=== PATIENT | female | born 1970 | race Caucasian/White ===

== ENCOUNTER 2016-12-02 18:21 | Observation (INO) | payer BC ==
[~2016-12-02] VITALS: Ht 172.7 cm; Wt 85.4 kg
[~2016-12-02 18:21] MED LIST: ASPI1TAB30 PO; DEXT10CA10 PO; HYDR-971 PO; PROP10TA PO; SERT100T PO; SUMA100T3 PO
[2016-12-02 18:43] LABS: BASO # 0.1 x10^3/uL (0.0-0.2); BASO % 1 % (0-3); EOS % 2 % (0-3); HEMATOCRIT 42.1 % (36.0-47.0); HEMOGLOBIN 14.6 g/dL (12.0-15.5); LYMPH # 2.8 x10^3/uL (1.0-4.8); LYMPH % 35 % (24-48); MEAN CORPUSCULAR HEMOGLOBIN 31 pg (25-35); MEAN CORPUSCULAR HGB CONC 35 g/dL (31-37); MEAN CORPUSCULAR VOLUME 90 fL (79-100); MONO % 7 % (0-9); NEUT % 56 % (31-73); PLATELET COUNT 434 x10^3/uL (140-400); RED BLOOD COUNT 4.67 x10^6/uL (3.50-5.40); RED CELL DISTRIBUTION WIDTH 12.1 % (11.5-14.5); WHITE BLOOD COUNT 8.1 x10^3/uL (4.0-11.0)
[2016-12-02] MEDS ORDERED: ASPIRIN CHEWABLE 81 MG TABLET. PO ONE (18:45)
[2016-12-02 19:00] LABS: CALCIUM 9.2 mg/dL (8.5-10.1); CREATININE 0.9 mg/dL (0.6-1.0); GFR 67.1; POTASSIUM 3.3 mmol/L (3.5-5.1)
[2016-12-02 19:07] LABS: ALBUMIN 4.2 g/dL (3.4-5.0); DIRECT BILIRUBIN 0.1 mg/dL (0.0-0.2); TOTAL BILIRUBIN 0.5 mg/dL (0.2-1.0); TOTAL PROTEIN 8.2 g/dL (6.4-8.2)
[2016-12-02] MEDS ORDERED: NITROGLYCERIN SUBLINGUAL 0.4 MG BOTTLE OF 25. SL PRN (19:45)
[2016-12-02] MEDS ORDERED: ONDANSETRON PF 4 MG/2 ML VIAL. IV PRN (19:45)
[2016-12-02] MEDS ORDERED: MORPHINE SULFATE 2 MG/ML DISP.SYRIN. IV PRN (19:45)
--- NOTE | 2016-12-02 19:47 | PHYS DOC ---
Past Medical History Past Medical History: Depression, Migraines, UTI, Other Additional Past Medical Histor: "shingles in left eye", TMJ, ADD Past Surgical History: Cholecystectomy, Other Additional Past Surgical Histo: L knee sx x 2, TMJ sx x 2 Alcohol Use: Occasionally Drug Use: None Adult General Chief Complaint Chief Complaint: CHEST PAIN HPI HPI 46-year-old female presenting to the emergency department today with chest pain this started approximately 1 hour ago. She describes the chest pain as a pressure there is mild nonradiating and intermittent. She denies nausea vomiting or diaphoresis. She denies shortness of breath. Review of systems is negative for abdominal pain fevers chills or cough. All other review of systems is negative unless otherwise noted in history of present illness. Review of Systems Review of Systems SEE ABOVE. Current Medications Current Medications Current Medications Medications (Trade) Dose Ordered Sig/Saad Start Time Stop Time Status Last Admin Dose Admin Aspirin (Children'S Aspirin) 324 mg 1X ONCE 12/02/16 18:45 12/02/16 18:46 DC 12/02/16 18:59 324 MG Nitroglycerin (Nitrostat) 0.4 mg PRN Q5MIN PRN 12/02/16 19:45 Potassium Chloride (Klor-Con) 20 meq 1X ONCE 12/02/16 19:45 12/02/16 19:46 UNV Allergies Allergies Allergies Coded Allergies Type Severity Reaction Last Updated Verified Iodinated Contrast Media - IV Dye Allergy Intermediate Rash 10/22/14 No Penicillins Allergy Intermediate Rash 10/22/14 Yes Sulfa (Sulfonamide Antibiotics) Allergy Intermediate Rash 10/22/14 Yes Physical Exam Physical Exam Constitutional: Well developed, well nourished, no acute distress, non-toxic appearance. HENT: Normocephalic, atraumatic, bilateral external ears normal, oropharynx moist, no oral exudates, nose normal. [] Eyes: PERRLA, EOMI, conjunctiva normal, no discharge. [] Neck: Normal range of motion, no tenderness, supple, no stridor. Cardiovascular:Heart rate regular rhythm, no murmur [] Lungs & Thorax: Bilateral breath sounds clear to auscultation [] Abdomen: Bowel sounds normal, soft, no tenderness, no masses, no pulsatile masses. Skin: Warm, dry, no erythema, no rash. [] Back: No tenderness, no CVA tenderness. [] Extremities: No tenderness, no cyanosis, no clubbing, ROM intact, no edema. Neurologic: Alert and oriented X 3, normal motor function, normal sensory function, no focal deficits noted. Psychologic: Affect normal, judgement normal, mood normal. [] Current Patient Data Vital Signs Vital Signs Date Time Temp Pulse Resp B/P Pulse Ox O2 Delivery O2 Flow Rate FiO2 12/02/16 19:00 90 20 163/89 99 Room Air 12/02/16 18:21 98.3 98.3 Lab Values Laboratory Tests Test 12/02/16 18:30 White Blood Count 8.1x10^3/uL (4.0-11.0) Red Blood Count 4.67x10^6/uL (3.50-5.40) Hemoglobin 14.6g/dL (12.0-15.5) Hematocrit 42.1% (36.0-47.0) Mean Corpuscular Volume 90fL (79-100) Mean Corpuscular Hemoglobin 31pg (25-35) Mean Corpuscular Hemoglobin Concent 35g/dL (31-37) Red Cell Distribution Width 12.1% (11.5-14.5) Platelet Count 434x10^3/uL (140-400) H Neutrophils (%) (Auto) 56% (31-73) Lymphocytes (%) (Auto) 35% (24-48) Monocytes (%) (Auto) 7% (0-9) Eosinophils (%) (Auto) 2% (0-3) Basophils (%) (Auto) 1% (0-3) Neutrophils # (Auto) 4.5x10^3uL (1.8-7.7) Lymphocytes # (Auto) 2.8x10^3/uL (1.0-4.8) Monocytes # (Auto) 0.6x10^3/uL (0.0-1.1) Eosinophils # (Auto) 0.2x10^3/uL (0.0-0.7) Basophils # (Auto) 0.1x10^3/uL (0.0-0.2) Sodium Level 139mmol/L (136-145) Potassium Level 3.3mmol/L (3.5-5.1) L Chloride Level 102mmol/L (98-107) Carbon Dioxide Level 24mmol/L (21-32) Anion Gap 13 (6-14) Blood Urea Nitrogen 14mg/dL (7-20) Creatinine 0.9mg/dL (0.6-1.0) Estimated GFR (Cockcroft-Gault) 67.1 Glucose Level 98mg/dL (70-99) Calcium Level 9.2mg/dL (8.5-10.1) Total Bilirubin 0.5mg/dL (0.2-1.0) Direct Bilirubin 0.1mg/dL (0.0-0.2) Aspartate Amino Transferase (AST) 19U/L (15-37) Alanine Aminotransferase (ALT) 21U/L (14-59) Alkaline Phosphatase 90U/L (46-116) Troponin I Quantitative < 0.017ng/mL (0.000-0.055) WD-Baa-G-Type Natriuretic Peptide 40pg/mL (0-124) Total Protein 8.2g/dL (6.4-8.2) Albumin 4.2g/dL (3.4-5.0) Lipase 140U/L (73-393) Laboratory Tests 12/02/16 18:30 Laboratory Tests 12/02/16 18:30 EKG EKG [] EKG shows sinus rhythm with a regular rate. Patient has leftward axis deviation. Incomplete right bundle-branch block present. ST segments show mild less than 1 mm repolarization. Radiology/Procedures Radiology/Procedures Chest x-ray reviewed by myself shows no obvious pneumothorax or infiltrate. [] Course & Med Decision Making Course & Med Decision Making Pertinent Labs and Imaging studies reviewed. (See chart for details) [] 46-year-old female presenting to the emergency department today with chest pain. Vital signs normal heart rate. Afebrile. Mildly hypertensive. Physical exam unremarkable. EKG shows right bundle branch block morphology with left axis deviation. Mild repolarization present. Troponin initially negative. I discussed the case with Dr. Wiley at approximate 7:45 PM who accepted admission and transfer of patient care at that time. I placed a consult for cardiology. The patient was then admitted for further evaluation workup and care. Dragon Disclaimer Dragon Disclaimer This electronic medical record was generated, in whole or in part, using a voice recognition dictation system. Departure Departure Impression: Primary Impression: Chest pain Disposition: ADMITTED INPATIENT Admitting Physician: Other (Dr. WILEY) Condition: STABLE Referrals: KAYE APONTE DO (PCP) KIMBERLY ELIZONDO MD Dec 02, 2016 19:47
[2016-12-02] MEDS ORDERED: POTASSIUM CHLORIDE 20 MEQ TABLET.ER. PO ONE (20:00)
[2016-12-02 21:59] VITALS: BP 143/90
[2016-12-02] MEDS ORDERED: SERT100T PO (22:03)
[2016-12-02] MEDS ORDERED: AMIT10TA PO (22:03)
[2016-12-02] MEDS ORDERED: DEXT15CA18 PO (22:03)
[2016-12-02] MEDS ORDERED: CALCIUM CARBONATE 500 MG TAB.CHEW PO PRN (23:00)
[2016-12-02] MEDS ORDERED: HYDROCODONE/APAP 5/325MG TABLET. PO PRN (23:00)
[2016-12-02] MEDS: FAMOTIDINE 20 MG TABLET. PO SCH (23:02)
[2016-12-02] MEDS: AMITRIPTYLINE HCL 10 MG TABLET. PO SCH (23:19)
[2016-12-02] MEDS: ACYCLOVIR 200 MG CAPSULE. PO SCH (23:19)
[2016-12-02 23:35] VITALS: BP 131/85
--- NOTE | 2016-12-02 23:47 | HP ---
ADMIT DATE: 12/02/2016 CHIEF COMPLAINT: Chest pain. HISTORY OF PRESENT ILLNESS: The patient is a 46-year-old woman with minor medical issues who presented to the Emergency Room with subxiphoid chest pain, which started after ingesting a tiny pill, which she felt was getting stuck in the middle of her chest. She tried to wash it down with extra fluid, but the sensation persisted and was soon followed with severe stabbing pain in her subxiphoid area, radiating through to the back. She denied any nausea, vomiting, diaphoresis or shortness of breath associated with this. As the pain did not let up, she presented to the Emergency Room. In the Emergency Room, EKG was mildly abnormal, although nonspecific. She was therefore admitted for rule out NM with consult to cardiology. 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 PAST SURGICAL HISTORY: She is status post cholecystectomy as well as knee surgery x 2 and TMJ surgery. FAMILY HISTORY: She is adopted, but does know that her father and paternal uncles had heart disease at an early age. SOCIAL HISTORY: Does not smoke, drinks wine or a vodka mixed drink occasionally. No drugs. ALLERGIES: PENICILLIN, SULFA AND CT CONTRAST. MEDICATIONS: MAR reconciled with home medications. REVIEW OF SYSTEMS: Positive as per HPI. Symptoms currently are actually almost resolved. She denies any new symptoms in rest of organ system review. PHYSICAL EXAMINATION: VITAL SIGNS: Showed blood pressure of 147/86, heart rate at 82, respiratory rate is 20. She is afebrile. GENERAL: This is a well-nourished 46-year-old woman, alert and oriented, in no acute distress. HEENT: Shows no scleral icterus. NECK: Supple. LUNGS: Clear to auscultation bilaterally. CARDIOVASCULAR: Heart is regular rate and rhythm. ABDOMEN: Has positive bowel sounds, soft, no tenderness to palpation including epigastric area. EXTREMITIES: Show no edema. SKIN: Warm, soft and dry. LABORATORY DATA: CBC with a WBC of 8.1, hemoglobin 14.6, platelets of 434, normal differential. BUN and creatinine of 14 and 0.9. Electrolytes with potassium of 3.3, otherwise normal as are LFTs. Initial troponin is negative. Chest x-ray by report is negative. ASSESSMENT AND PLAN: The patient is a 46-year-old woman who presents with subxiphoid pain after swallowing a pill. She does have some EKG abnormalities. She is therefore admitted for chest pain rule out. Cardiology will be consulted in the a.m. Suspect however, that this is GI related rather than cardiac. Potentially due to GERD plus/minus other etiology including esophagitis or Meckel diverticulum. We will place her on Tums and Pepcid for now. The patient does have history of ocular shingles for which her certified medicine aide has placed her on acyclovir. We will continue medications here as well. For her depression, which is well controlled, we will continue her SSRI. LONNY FRAIRE MD DR: UR/nts JOB#: [id number] / [id number] KAYE Ricardo DO [facility]ENTERMichael
[2016-12-03 07:00] VITALS: BP 124/81
--- NOTE | 2016-12-03 07:14 | EKG ---
[facility] [address] [place] [address] Test Date: 2016-12-02 Test Time: 18:38:44 Pat Name: CHARLINE COMBS Department: Room: 524 1 Gender: F Budget Analyst: : 1970 Requested By: KIMBERLY ELIZONDO Order Number: [id number] Reading MD: Yola Herrera Measurements Intervals [place] Rate: 75 P: 65 MO: 158 QRS: 64 QRSD: 82 T: 50 QT: 406 QTc: 456 Interpretive Statements SINUS RHYTHM QRS(T) CONTOUR ABNORMALITY CONSIDER ANTEROSEPTAL MYOCARDIAL DAMAGE RI6.01 No previous ECG available for comparison Electronically Signed On 12-03-2016 19:21:15 CDT by Yola Herrera
--- NOTE | 2016-12-03 07:58 | RAD ---
EXAM: Chest, single view. HISTORY: Chest pain. COMPARISON: None. FINDINGS: A frontal view of the chest is obtained. There is no infiltrate, effusion or pneumothorax. The heart is normal in size. IMPRESSION: No acute pulmonary finding.
[2016-12-03 08:13] LABS: BASO # 0.1 x10^3/uL (0.0-0.2); BASO % 1 % (0-3); EOS % 5 % (0-3); HEMATOCRIT 39.3 % (36.0-47.0); HEMOGLOBIN 13.1 g/dL (12.0-15.5); LYMPH # 1.7 x10^3/uL (1.0-4.8); LYMPH % 34 % (24-48); MEAN CORPUSCULAR HEMOGLOBIN 31 pg (25-35); MEAN CORPUSCULAR HGB CONC 33 g/dL (31-37); MEAN CORPUSCULAR VOLUME 93 fL (79-100); MONO % 8 % (0-9); NEUT % 53 % (31-73); PLATELET COUNT 355 x10^3/uL (140-400); RED BLOOD COUNT 4.23 x10^6/uL (3.50-5.40); RED CELL DISTRIBUTION WIDTH 12.2 % (11.5-14.5)
[2016-12-03] MEDS: SERTRALINE 50 MG TABLET. PO SCH (08:17)
[2016-12-03] MEDS: ACYCLOVIR 200 MG CAPSULE. PO SCH ×3 (08:17→20:38)
[2016-12-03] MEDS: FAMOTIDINE 20 MG TABLET. PO SCH ×2 (08:17→20:38)
[2016-12-03 08:25] LABS: CALCIUM 8.6 mg/dL (8.5-10.1); CREATININE 0.8 mg/dL (0.6-1.0); GFR 76.9; POTASSIUM 3.7 mmol/L (3.5-5.1)
[2016-12-03] MEDS: DEXTROAMPHETAMINE PO SCH ×2 (09:00→19:23)
[2016-12-03] MEDS: AMPHETAMINE PO SCH ×2 (09:00→19:23)
[2016-12-03 11:00] VITALS: BP 133/79
--- NOTE | 2016-12-03 11:38 | PDOC ---
PROGRESS NOTES Chief Complaint Chief Complaint Chest pain L eye herpes zoster, recurrent Migraines Depression History of Present Illness History of Present Illness Pt seen and evaluated at bedside. No acute events overnight; patient resting comfortably without chest pain at this time. Discussed plan of care with patient , family at bedside, and with RN. Questions sought and answered. Vitals Vitals Vital Signs Date Time Temp Pulse Resp B/P Pulse Ox O2 Delivery O2 Flow Rate FiO2 12/03/16 10:51 Room Air 12/03/16 07:00 97.7 78 16 124/81 96 97.7 Physical Exam General: Alert, Oriented X3, No acute distress Heart: Regular rate, Normal S1 Lungs: Clear, Other (negative accessory muscle use ) Abdomen: Normal bowel sounds, Soft, No tenderness Extremities: No cyanosis, No edema Skin: No rashes Labs LABS Laboratory Tests Test 12/02/16 18:30 12/03/16 01:45 12/03/16 07:50 White Blood Count 8.1x10^3/uL (4.0-11.0) 5.0x10^3/uL (4.0-11.0) Red Blood Count 4.67x10^6/uL (3.50-5.40) 4.23x10^6/uL (3.50-5.40) Hemoglobin 14.6g/dL (12.0-15.5) 13.1g/dL (12.0-15.5) Hematocrit 42.1% (36.0-47.0) 39.3% (36.0-47.0) Mean Corpuscular Volume 90fL (79-100) 93fL (79-100) Mean Corpuscular Hemoglobin 31pg (25-35) 31pg (25-35) Mean Corpuscular Hemoglobin Concent 35g/dL (31-37) 33g/dL (31-37) Red Cell Distribution Width 12.1% (11.5-14.5) 12.2% (11.5-14.5) Platelet Count 434x10^3/uL (140-400) 355x10^3/uL (140-400) Neutrophils (%) (Auto) 56% (31-73) 53% (31-73) Lymphocytes (%) (Auto) 35% (24-48) 34% (24-48) Monocytes (%) (Auto) 7% (0-9) 8% (0-9) Eosinophils (%) (Auto) 2% (0-3) 5% (0-3) Basophils (%) (Auto) 1% (0-3) 1% (0-3) Neutrophils # (Auto) 4.5x10^3uL (1.8-7.7) 2.6x10^3uL (1.8-7.7) Lymphocytes # (Auto) 2.8x10^3/uL (1.0-4.8) 1.7x10^3/uL (1.0-4.8) Monocytes # (Auto) 0.6x10^3/uL (0.0-1.1) 0.4x10^3/uL (0.0-1.1) Eosinophils # (Auto) 0.2x10^3/uL (0.0-0.7) 0.2x10^3/uL (0.0-0.7) Basophils # (Auto) 0.1x10^3/uL (0.0-0.2) 0.1x10^3/uL (0.0-0.2) Sodium Level 139mmol/L (136-145) 141mmol/L (136-145) Potassium Level 3.3mmol/L (3.5-5.1) 3.7mmol/L (3.5-5.1) Chloride Level 102mmol/L (98-107) 107mmol/L (98-107) Carbon Dioxide Level 24mmol/L (21-32) 25mmol/L (21-32) Anion Gap 13 (6-14) 9 (6-14) Blood Urea Nitrogen 14mg/dL (7-20) 12mg/dL (7-20) Creatinine 0.9mg/dL (0.6-1.0) 0.8mg/dL (0.6-1.0) Estimated GFR (Cockcroft-Gault) 67.1 76.9 Glucose Level 98mg/dL (70-99) 105mg/dL (70-99) Calcium Level 9.2mg/dL (8.5-10.1) 8.6mg/dL (8.5-10.1) Total Bilirubin 0.5mg/dL (0.2-1.0) Direct Bilirubin 0.1mg/dL (0.0-0.2) Aspartate Amino Transf (AST/SGOT) 19U/L (15-37) Alanine Aminotransferase (ALT/SGPT) 21U/L (14-59) Alkaline Phosphatase 90U/L (46-116) Troponin I Quantitative < 0.017ng/mL (0.000-0.055) < 0.017ng/mL (0.000-0.055) < 0.017ng/mL (0.000-0.055) YC-Elt-G-Type Natriuretic Peptide 40pg/mL (0-124) Total Protein 8.2g/dL (6.4-8.2) Albumin 4.2g/dL (3.4-5.0) Lipase 140U/L (73-393) Review of Systems Review of Systems (+) L eye pain Denies chest pain, shortness of breath, abdominal pain, n/v/d, or fever/chills. Assessment and Plan Assessmemt and Plan Problems Medical Problems: (1) Chest pain Status: Acute Assessment: 1.) atypical Chest pain 2.) L eye herpes zoster, recurrent 3.) Migraines 4.) Depression Plan: - continue PPI - Pain management - Cardiology consult, recommendations appreciated - continue home medications; pt states she is already on acyclovir regimen - probable discharge pending clearance by cardiology; f/u with pcp and/or cardiology as outpatient. Problems: Comment Review of Relevant I have reviewed the following items celina (where applicable) has been applied. Labs Laboratory Tests Test 12/02/16 18:30 12/03/16 01:45 12/03/16 07:50 White Blood Count 8.1x10^3/uL (4.0-11.0) 5.0x10^3/uL (4.0-11.0) Red Blood Count 4.67x10^6/uL (3.50-5.40) 4.23x10^6/uL (3.50-5.40) Hemoglobin 14.6g/dL (12.0-15.5) 13.1g/dL (12.0-15.5) Hematocrit 42.1% (36.0-47.0) 39.3% (36.0-47.0) Mean Corpuscular Volume 90fL (79-100) 93fL (79-100) Mean Corpuscular Hemoglobin 31pg (25-35) 31pg (25-35) Mean Corpuscular Hemoglobin Concent 35g/dL (31-37) 33g/dL (31-37) Red Cell Distribution Width 12.1% (11.5-14.5) 12.2% (11.5-14.5) Platelet Count 434x10^3/uL (140-400) 355x10^3/uL (140-400) Neutrophils (%) (Auto) 56% (31-73) 53% (31-73) Lymphocytes (%) (Auto) 35% (24-48) 34% (24-48) Monocytes (%) (Auto) 7% (0-9) 8% (0-9) Eosinophils (%) (Auto) 2% (0-3) 5% (0-3) Basophils (%) (Auto) 1% (0-3) 1% (0-3) Neutrophils # (Auto) 4.5x10^3uL (1.8-7.7) 2.6x10^3uL (1.8-7.7) Lymphocytes # (Auto) 2.8x10^3/uL (1.0-4.8) 1.7x10^3/uL (1.0-4.8) Monocytes # (Auto) 0.6x10^3/uL (0.0-1.1) 0.4x10^3/uL (0.0-1.1) Eosinophils # (Auto) 0.2x10^3/uL (0.0-0.7) 0.2x10^3/uL (0.0-0.7) Basophils # (Auto) 0.1x10^3/uL (0.0-0.2) 0.1x10^3/uL (0.0-0.2) Sodium Level 139mmol/L (136-145) 141mmol/L (136-145) Potassium Level 3.3mmol/L (3.5-5.1) 3.7mmol/L (3.5-5.1) Chloride Level 102mmol/L (98-107) 107mmol/L (98-107) Carbon Dioxide Level 24mmol/L (21-32) 25mmol/L (21-32) Anion Gap 13 (6-14) 9 (6-14) Blood Urea Nitrogen 14mg/dL (7-20) 12mg/dL (7-20) Creatinine 0.9mg/dL (0.6-1.0) 0.8mg/dL (0.6-1.0) Estimated GFR (Cockcroft-Gault) 67.1 76.9 Glucose Level 98mg/dL (70-99) 105mg/dL (70-99) Calcium Level 9.2mg/dL (8.5-10.1) 8.6mg/dL (8.5-10.1) Total Bilirubin 0.5mg/dL (0.2-1.0) Direct Bilirubin 0.1mg/dL (0.0-0.2) Aspartate Amino Transf (AST/SGOT) 19U/L (15-37) Alanine Aminotransferase (ALT/SGPT) 21U/L (14-59) Alkaline Phosphatase 90U/L (46-116) Troponin I Quantitative < 0.017ng/mL (0.000-0.055) < 0.017ng/mL (0.000-0.055) < 0.017ng/mL (0.000-0.055) EK-Sxw-L-Type Natriuretic Peptide 40pg/mL (0-124) Total Protein 8.2g/dL (6.4-8.2) Albumin 4.2g/dL (3.4-5.0) Lipase 140U/L (73-393) Laboratory Tests Test 12/02/16 18:30 12/03/16 01:45 12/03/16 07:50 White Blood Count 8.1x10^3/uL (4.0-11.0) 5.0x10^3/uL (4.0-11.0) Red Blood Count 4.67x10^6/uL (3.50-5.40) 4.23x10^6/uL (3.50-5.40) Hemoglobin 14.6g/dL (12.0-15.5) 13.1g/dL (12.0-15.5) Hematocrit 42.1% (36.0-47.0) 39.3% (36.0-47.0) Mean Corpuscular Volume 90fL (79-100) 93fL (79-100) Mean Corpuscular Hemoglobin 31pg (25-35) 31pg (25-35) Mean Corpuscular Hemoglobin Concent 35g/dL (31-37) 33g/dL (31-37) Red Cell Distribution Width 12.1% (11.5-14.5) 12.2% (11.5-14.5) Platelet Count 434x10^3/uL (140-400) 355x10^3/uL (140-400) Neutrophils (%) (Auto) 56% (31-73) 53% (31-73) Lymphocytes (%) (Auto) 35% (24-48) 34% (24-48) Monocytes (%) (Auto) 7% (0-9) 8% (0-9) Eosinophils (%) (Auto) 2% (0-3) 5% (0-3) Basophils (%) (Auto) 1% (0-3) 1% (0-3) Neutrophils # (Auto) 4.5x10^3uL (1.8-7.7) 2.6x10^3uL (1.8-7.7) Lymphocytes # (Auto) 2.8x10^3/uL (1.0-4.8) 1.7x10^3/uL (1.0-4.8) Monocytes # (Auto) 0.6x10^3/uL (0.0-1.1) 0.4x10^3/uL (0.0-1.1) Eosinophils # (Auto) 0.2x10^3/uL (0.0-0.7) 0.2x10^3/uL (0.0-0.7) Basophils # (Auto) 0.1x10^3/uL (0.0-0.2) 0.1x10^3/uL (0.0-0.2) Sodium Level 139mmol/L (136-145) 141mmol/L (136-145) Potassium Level 3.3mmol/L (3.5-5.1) 3.7mmol/L (3.5-5.1) Chloride Level 102mmol/L (98-107) 107mmol/L (98-107) Carbon Dioxide Level 24mmol/L (21-32) 25mmol/L (21-32) Anion Gap 13 (6-14) 9 (6-14) Blood Urea Nitrogen 14mg/dL (7-20) 12mg/dL (7-20) Creatinine 0.9mg/dL (0.6-1.0) 0.8mg/dL (0.6-1.0) Estimated GFR (Cockcroft-Gault) 67.1 76.9 Glucose Level 98mg/dL (70-99) 105mg/dL (70-99) Calcium Level 9.2mg/dL (8.5-10.1) 8.6mg/dL (8.5-10.1) Total Bilirubin 0.5mg/dL (0.2-1.0) Direct Bilirubin 0.1mg/dL (0.0-0.2) Aspartate Amino Transf (AST/SGOT) 19U/L (15-37) Alanine Aminotransferase (ALT/SGPT) 21U/L (14-59) Alkaline Phosphatase 90U/L (46-116) Troponin I Quantitative < 0.017ng/mL (0.000-0.055) < 0.017ng/mL (0.000-0.055) < 0.017ng/mL (0.000-0.055) DN-Pwk-T-Type Natriuretic Peptide 40pg/mL (0-124) Total Protein 8.2g/dL (6.4-8.2) Albumin 4.2g/dL (3.4-5.0) Lipase 140U/L (73-393) Medications Current Medications Aspirin (Children'S Aspirin) 324 mg 1X ONCE PO Last administered on 12/02/16 18:59; Start 12/02/16 at 18:45; Stop 12/02/16 at 18:46; Status DC Nitroglycerin (Nitrostat) 0.4 mg PRN Q5MIN PRN SL CHEST PAIN; Start 12/02/16 at 19:45 Potassium Chloride (Klor-Con) 20 meq 1X ONCE PO Last administered on 12/02/16 20:33; Start 12/02/16 at 20:00; Stop 12/02/16 at 20:01; Status DC Ondansetron HCl (Zofran) 4 mg PRN Q8HRS PRN IV NAUSEA/VOMITING; Start 12/02/16 at 19:45; Stop 12/03/16 at 19:44 Morphine Sulfate 2 mg PRN Q2HR PRN IV PAIN; Start 12/02/16 at 19:45; Stop at 19:44 Calcium Carbonate/ Glycine (Tums) 500 mg PRN Q4HRS PRN PO INDIGESTION; Start at 23:00 Famotidine (Pepcid) 20 mg BID PO Last administered on 12/03/16 08:17; Start 12/02/16 at 23:00 Amitriptyline HCl (Elavil) 10 mg QHS PO Last administered on 12/02/16 23:19; Start 12/03/16 at 00:00 Acetaminophen/ Hydrocodone Bitart (Lortab 5/325) 1 tab PRN Q6HRS PRN PO MODERATE PAIN Last administered on 12/03/16 08:17; Start 12/02/16 at 23:00 Non-Formulary Medication 15 mg BID PO ; Start 12/03/16 at 09:00; Status UNV Sertraline HCl (Zoloft) 100 mg DAILY PO Last administered on 12/03/16 08:17; Start 12/03/16 at 09:00 Acyclovir (Zovirax) 1,000 mg [id number] PO Last administered on 12/03/16 08:17; Start 12/02/16 at 23:30 Active Scripts Active [place] 5-325 Tablet (Acetaminophen/Hydrocodone Bitart) 1 Each Tablet 1 Tab PO PRN Q6HRS PRN Reported Adderall Xr 15 Mg Capsule (Dextroamphetamine/Amphetamine) 15 Mg Cap.er.24h 15 Mg PO BID Zoloft (Sertraline Hcl) 100 Mg Tablet 1 Tab PO DAILY Amitriptyline Hcl 10 Mg Tablet 1 Tab PO QHS Vitals/I & O Vital Sign - Last 24 Hours 12/02/16 12/02/16 12/02/16 12/02/16 18:21 19:00 20:00 21:00 Temp 98.3 98.3 Pulse 91 90 84 82 Resp 18 20 20 20 B/P 164/84 163/89 143/86 147/86 Pulse Ox 100 99 97 98 O2 Delivery Room Air Room Air Room Air Room Air 12/02/16 12/02/16 12/02/16 12/03/16 21:59 22:04 23:35 03:57 Temp 98.7 98.0 98.7 98.0 Pulse 83 81 81 Resp 20 20 B/P 143/90 131/85 Pulse Ox 99 97 O2 Delivery Room Air Room Air Room Air 12/03/16 12/03/16 12/03/16 12/03/16 07:00 08:15 08:17 10:51 Temp 97.7 97.7 Pulse 78 Resp 16 B/P 124/81 Pulse Ox 96 O2 Delivery Room Air Room Air Room Air Room Air Intake and Output 12/02/16 12/02/16 12/03/16 15:00 23:00 07:00 Intake Total 240 ml Balance 240 ml MONISHA GONZALES III DO Dec 03, 2016 11:38
--- NOTE | 2016-12-03 11:59 | PDOC2 ---
CONSULT Date of Consult Date of Consult DATE: 12/03/16 TIME: 11:52 Reason for Consult Reason for Consult: Chest pain Referring Physician Referring Physician: Dr. Wiley Identification/Chief Complaint Chief Complaint Chest pain Source Source: Patient History of Present Illness Reason for Visit: The patient is a 46-year-old female who reports episodes of chest discomfort developing yesterday. These were not related to exertion but become fairly severe and she was brought to the emergency room. In the emergency room the pain continued but resolved later last evening. Her initial troponin is normal. Her EKG shows a sinus rhythm with nonspecific ST-T wave changes and a septal Q- wave. The patient denies any history of coronary artery disease, congestive heart failure or cardiac arrhythmias. This morning she is resting comfortably in bed. She has remained in a sinus rhythm overnight. Past Medical History CENTRAL NERVOUS SYSTEM: Migraine Psych: Depression Musculoskeletal: Other (TMJ) Infectious disease: Other (ongoing left eye shingles.) Past Surgical History Past Surgical History: Cholecystectomy, Other (left knee surgery and TMJ surgery.) Family History Family History: Heart Disease (the patient is adopted but is aware of a family history of heart disease.) Social History No ALCOHOL: rare Current Problem List Problem List Problems Medical Problems: (1) Chest pain Status: Acute Current Medications Current Medications Current Medications Aspirin (Children'S Aspirin) 324 mg 1X ONCE PO Last administered on 12/02/16 18:59; Start 12/02/16 at 18:45; Stop 12/02/16 at 18:46; Status DC Nitroglycerin (Nitrostat) 0.4 mg PRN Q5MIN PRN SL CHEST PAIN; Start 12/02/16 at 19:45 Potassium Chloride (Klor-Con) 20 meq 1X ONCE PO Last administered on 12/02/16 20:33; Start 12/02/16 at 20:00; Stop 12/02/16 at 20:01; Status DC Ondansetron HCl (Zofran) 4 mg PRN Q8HRS PRN IV NAUSEA/VOMITING; Start 12/02/16 at 19:45; Stop 12/03/16 at 19:44 Morphine Sulfate 2 mg PRN Q2HR PRN IV PAIN; Start 12/02/16 at 19:45; Stop at 19:44 Calcium Carbonate/ Glycine (Tums) 500 mg PRN Q4HRS PRN PO INDIGESTION; Start at 23:00 Famotidine (Pepcid) 20 mg BID PO Last administered on 12/03/16 08:17; Start 12/02/16 at 23:00 Amitriptyline HCl (Elavil) 10 mg QHS PO Last administered on 12/02/16 23:19; Start 12/03/16 at 00:00 Acetaminophen/ Hydrocodone Bitart (Lortab 5/325) 1 tab PRN Q6HRS PRN PO MODERATE PAIN Last administered on 12/03/16 08:17; Start 12/02/16 at 23:00 Non-Formulary Medication 15 mg BID PO ; Start 12/03/16 at 09:00; Status UNV Sertraline HCl (Zoloft) 100 mg DAILY PO Last administered on 12/03/16 08:17; Start 12/03/16 at 09:00 Acyclovir (Zovirax) 1,000 mg [id number] PO Last administered on 12/03/16 08:17; Start 12/02/16 at 23:30 Active Scripts Active [place] 5-325 Tablet (Acetaminophen/Hydrocodone Bitart) 1 Each Tablet 1 Tab PO PRN Q6HRS PRN Reported Adderall Xr 15 Mg Capsule (Dextroamphetamine/Amphetamine) 15 Mg Cap.er.24h 15 Mg PO BID Zoloft (Sertraline Hcl) 100 Mg Tablet 1 Tab PO DAILY Amitriptyline Hcl 10 Mg Tablet 1 Tab PO QHS Allergies Allergies: Coded Allergies: Iodinated Contrast Media - Oral and (Unverified Allergy, Intermediate, Rash, 10/22/14) Penicillins (Verified Allergy, Intermediate, Rash, 10/22/14) Sulfa (Sulfonamide Antibiotics) (Verified Allergy, Intermediate, Rash, ) ROS Cardiovascular: yes Chest Pain, yes Palpitations Physical Exam General: No acute distress HEENT: Atraumatic Lungs: Clear to auscultation Heart: Other (regular rate and rhythm with 1/6 systolic murmur.) Abdomen: Normal bowel sounds Extremities: No clubbing Vitals VITALS Vital Signs Date Time Temp Pulse Resp B/P Pulse Ox O2 Delivery O2 Flow Rate FiO2 12/03/16 10:51 Room Air 12/03/16 07:00 97.7 78 16 124/81 96 97.7 Labs Labs Laboratory Tests Test 12/02/16 18:30 12/03/16 01:45 12/03/16 07:50 White Blood Count 8.1x10^3/uL (4.0-11.0) 5.0x10^3/uL (4.0-11.0) Red Blood Count 4.67x10^6/uL (3.50-5.40) 4.23x10^6/uL (3.50-5.40) Hemoglobin 14.6g/dL (12.0-15.5) 13.1g/dL (12.0-15.5) Hematocrit 42.1% (36.0-47.0) 39.3% (36.0-47.0) Mean Corpuscular Volume 90fL (79-100) 93fL (79-100) Mean Corpuscular Hemoglobin 31pg (25-35) 31pg (25-35) Mean Corpuscular Hemoglobin Concent 35g/dL (31-37) 33g/dL (31-37) Red Cell Distribution Width 12.1% (11.5-14.5) 12.2% (11.5-14.5) Platelet Count 434x10^3/uL (140-400) 355x10^3/uL (140-400) Neutrophils (%) (Auto) 56% (31-73) 53% (31-73) Lymphocytes (%) (Auto) 35% (24-48) 34% (24-48) Monocytes (%) (Auto) 7% (0-9) 8% (0-9) Eosinophils (%) (Auto) 2% (0-3) 5% (0-3) Basophils (%) (Auto) 1% (0-3) 1% (0-3) Neutrophils # (Auto) 4.5x10^3uL (1.8-7.7) 2.6x10^3uL (1.8-7.7) Lymphocytes # (Auto) 2.8x10^3/uL (1.0-4.8) 1.7x10^3/uL (1.0-4.8) Monocytes # (Auto) 0.6x10^3/uL (0.0-1.1) 0.4x10^3/uL (0.0-1.1) Eosinophils # (Auto) 0.2x10^3/uL (0.0-0.7) 0.2x10^3/uL (0.0-0.7) Basophils # (Auto) 0.1x10^3/uL (0.0-0.2) 0.1x10^3/uL (0.0-0.2) Sodium Level 139mmol/L (136-145) 141mmol/L (136-145) Potassium Level 3.3mmol/L (3.5-5.1) 3.7mmol/L (3.5-5.1) Chloride Level 102mmol/L (98-107) 107mmol/L (98-107) Carbon Dioxide Level 24mmol/L (21-32) 25mmol/L (21-32) Anion Gap 13 (6-14) 9 (6-14) Blood Urea Nitrogen 14mg/dL (7-20) 12mg/dL (7-20) Creatinine 0.9mg/dL (0.6-1.0) 0.8mg/dL (0.6-1.0) Estimated GFR (Cockcroft-Gault) 67.1 76.9 Glucose Level 98mg/dL (70-99) 105mg/dL (70-99) Calcium Level 9.2mg/dL (8.5-10.1) 8.6mg/dL (8.5-10.1) Total Bilirubin 0.5mg/dL (0.2-1.0) Direct Bilirubin 0.1mg/dL (0.0-0.2) Aspartate Amino Transf (AST/SGOT) 19U/L (15-37) Alanine Aminotransferase (ALT/SGPT) 21U/L (14-59) Alkaline Phosphatase 90U/L (46-116) Troponin I Quantitative < 0.017ng/mL (0.000-0.055) < 0.017ng/mL (0.000-0.055) < 0.017ng/mL (0.000-0.055) OJ-Arv-O-Type Natriuretic Peptide 40pg/mL (0-124) Total Protein 8.2g/dL (6.4-8.2) Albumin 4.2g/dL (3.4-5.0) Lipase 140U/L (73-393) Laboratory Tests Test 12/02/16 18:30 12/03/16 01:45 12/03/16 07:50 White Blood Count 8.1x10^3/uL (4.0-11.0) 5.0x10^3/uL (4.0-11.0) Red Blood Count 4.67x10^6/uL (3.50-5.40) 4.23x10^6/uL (3.50-5.40) Hemoglobin 14.6g/dL (12.0-15.5) 13.1g/dL (12.0-15.5) Hematocrit 42.1% (36.0-47.0) 39.3% (36.0-47.0) Mean Corpuscular Volume 90fL (79-100) 93fL (79-100) Mean Corpuscular Hemoglobin 31pg (25-35) 31pg (25-35) Mean Corpuscular Hemoglobin Concent 35g/dL (31-37) 33g/dL (31-37) Red Cell Distribution Width 12.1% (11.5-14.5) 12.2% (11.5-14.5) Platelet Count 434x10^3/uL (140-400) 355x10^3/uL (140-400) Neutrophils (%) (Auto) 56% (31-73) 53% (31-73) Lymphocytes (%) (Auto) 35% (24-48) 34% (24-48) Monocytes (%) (Auto) 7% (0-9) 8% (0-9) Eosinophils (%) (Auto) 2% (0-3) 5% (0-3) Basophils (%) (Auto) 1% (0-3) 1% (0-3) Neutrophils # (Auto) 4.5x10^3uL (1.8-7.7) 2.6x10^3uL (1.8-7.7) Lymphocytes # (Auto) 2.8x10^3/uL (1.0-4.8) 1.7x10^3/uL (1.0-4.8) Monocytes # (Auto) 0.6x10^3/uL (0.0-1.1) 0.4x10^3/uL (0.0-1.1) Eosinophils # (Auto) 0.2x10^3/uL (0.0-0.7) 0.2x10^3/uL (0.0-0.7) Basophils # (Auto) 0.1x10^3/uL (0.0-0.2) 0.1x10^3/uL (0.0-0.2) Sodium Level 139mmol/L (136-145) 141mmol/L (136-145) Potassium Level 3.3mmol/L (3.5-5.1) 3.7mmol/L (3.5-5.1) Chloride Level 102mmol/L (98-107) 107mmol/L (98-107) Carbon Dioxide Level 24mmol/L (21-32) 25mmol/L (21-32) Anion Gap 13 (6-14) 9 (6-14) Blood Urea Nitrogen 14mg/dL (7-20) 12mg/dL (7-20) Creatinine 0.9mg/dL (0.6-1.0) 0.8mg/dL (0.6-1.0) Estimated GFR (Cockcroft-Gault) 67.1 76.9 Glucose Level 98mg/dL (70-99) 105mg/dL (70-99) Calcium Level 9.2mg/dL (8.5-10.1) 8.6mg/dL (8.5-10.1) Total Bilirubin 0.5mg/dL (0.2-1.0) Direct Bilirubin 0.1mg/dL (0.0-0.2) Aspartate Amino Transf (AST/SGOT) 19U/L (15-37) Alanine Aminotransferase (ALT/SGPT) 21U/L (14-59) Alkaline Phosphatase 90U/L (46-116) Troponin I Quantitative < 0.017ng/mL (0.000-0.055) < 0.017ng/mL (0.000-0.055) < 0.017ng/mL (0.000-0.055) YL-Lxt-T-Type Natriuretic Peptide 40pg/mL (0-124) Total Protein 8.2g/dL (6.4-8.2) Albumin 4.2g/dL (3.4-5.0) Lipase 140U/L (73-393) Assessment/Plan Assessment/Plan 1. Chest pain. Pain has resolved. The patient has no evidence of acute infarction and is ruling out. However she does have nonspecific ST segment changes on her EKG as well as a septal Q-wave. This was discussed with the patient. At this time would like to continue to monitor the patient. We'll proceed with a Lexiscan nuclear stress test. 2. Heart murmur. We'll check an echocardiogram. 3. Left eye shingles. Continue present treatment. 4. History of migraine headaches. Patient denies any headaches at this time. 5. History of depression. We'll continue medical treatment. Thank you for allowing us to participate in the care of your pleasant patient. SKIP BELL MD Dec 03, 2016 11:59
[2016-12-03 14:25] VITALS: BP 104/74
[2016-12-03 19:33] VITALS: BP 126/79
[2016-12-03] MEDS: AMITRIPTYLINE HCL 10 MG TABLET. PO SCH (20:38)
[2016-12-03 23:27] VITALS: BP 123/79
[2016-12-04 05:37] LABS: CHOLESTEROL/HDL RATIO 1.8
[2016-12-04 07:00] VITALS: BP 126/84
[2016-12-04] MEDS ORDERED: ACYC200C PO (10:03)
[2016-12-04] MEDS ORDERED: REGADENOSON 0.4 MG/5 ML DISP.SYRIN. IV ONE (10:15)
--- NOTE | 2016-12-04 13:16 | PDOC ---
CARDIO Progress Notes Date and Time Date of Service 12/04/16 Time of Evaluation 1320 Subjective Subjective: No Chest Pain, No shortness of breath, No Palpitations Vitals Vitals Vital Signs Date Time Temp Pulse Resp B/P Pulse Ox O2 Delivery O2 Flow Rate FiO2 12/04/16 08:00 Room Air 12/04/16 07:00 97.9 76 19 126/84 98 97.9 Weight Weight [ ] Input and Output Intake and Output Intake and Output 12/04/16 07:00 Intake Total 1980 ml Balance 1980 ml Intake Oral 1980 ml # Voids 2 Laboratory Labs Laboratory Tests Test 12/04/16 05:05 Triglycerides Level 54mg/dL (0-150) Cholesterol Level 161mg/dL (0-200) LDL Cholesterol, Calculated 60mg/dL (0-100) VLDL Cholesterol, Calculated 11mg/dL (0-40) HDL Cholesterol 90mg/dL (40-60) Cholesterol/HDL Ratio 1.8 Physical Exam HEENT: Neck Supple W Full Motion Chest: Symmetric LUNGS: Clear to Auscultation Heart: S1S2, RRR, murmurs (1/6 systolic murmur ) Abdomen: Soft N/T Extremities: 2+ Dorsalis Pedis, No Edema, No Calf Tenderness Neurology: alert, oriented, follow commands Assessment Assessment Chest pain resolved. no acute events overnight troponin series normal- AMI ruled out lipids WNL MPI without evidence of ischemia may discharge from CV standpoint 2. Murmur echo with preserved LV function nor significant valvular abnormalities 3. Left eye shingles continue present treatment per PCP KIMMY DUVAL APRN Dec 04, 2016 13:16
[2016-12-04] MEDS: ACYCLOVIR 200 MG CAPSULE. PO SCH (13:53)
[2016-12-04] MEDS: FAMOTIDINE 20 MG TABLET. PO SCH (13:53)
[2016-12-04] MEDS: SERTRALINE 50 MG TABLET. PO SCH (13:54)
--- NOTE | 2016-12-04 14:15 | CARD ---
APPROVED REPORT EXAM: Two-dimensional and M-mode echocardiogram with Doppler and color Doppler. Other Information Quality : GoodHR: 84bpm Rhythm : NSR INDICATION Chest Pain Murmur 2D DIMENSIONS RVDd2.6 (2.9-3.5cm)Left Atrium(2D)3.1 (1.6-4.0cm) IVSd0.9 (0.7-1.1cm)Aortic Root(2D)2.1 (2.0-3.7cm) LVDd4.6 (3.9-5.9cm)LVOT Diameter2.2 (1.8-2.4cm) PWd1.0 (0.7-1.1cm)LVDs3.3 (2.5-4.0cm) FS (%) 28.5 %SV54.0 ml LVEF(%)55.1 (>50%) Aortic Valve AoV Peak Primo.148.2cm/sAoV VTI24.0cm AO Peak GR.8.8mmHgLVOT Peak Primo.100.3cm/s AO Mean GR.5mmHgAVA (VMAX)2.63cm2 Mitral Valve MV E Qqvpgmsx56.9cm/sMV E Peak Gr.2mmHg MV DECEL [id number] A Srqmddpp52.1cm/s MV E Mean Gr.2mmHgE/A Ratio0.9 MV A [id number] Pulmonary Valve PV Peak Spveobis57.0cm/s Pulmonary Vein S1 Zdvitnfm99.5cm/sD2 Aaidvvvx59.5cm/s PVa [id number] LEFT VENTRICLE The left ventricle is normal size. There is normal left ventricular wall thickness. The left ventricu lar systolic function is normal. The Ejection Fraction is 60-65%. There is normal LV segmental wall m otion. Transmitral Doppler flow pattern is Grade I-abnormal relaxation pattern. RIGHT VENTRICLE The right ventricle is normal size. There is normal right ventricular wall thickness. The right ventr icular systolic function is normal. ATRIA The left atrium size is normal. The right atrium size is normal. The interatrial septum is intact wit h no evidence for an atrial septal defect or patent foramen ovale as noted on 2-D or Doppler imaging. AORTIC VALVE The aortic valve is normal in structure and function. The aortic valve is trileaflet. Doppler and Col or Flow revealed no significant aortic regurgitation. There is no significant aortic valvular stenosi s. MITRAL VALVE The mitral valve is normal in structure and function. There is no evidence of mitral valve prolapse. There is no mitral valve stenosis. Doppler and Color Flow revealed no mitral valve regurgitation note d. TRICUSPID VALVE The tricuspid valve is normal in structure and function. Doppler and Color Flow revealed no tricuspid valve regurgitation noted. There is no pulmonary hypertension. PULMONIC VALVE The pulmonary valve is normal in structure and function. Doppler and Color Flow revealed no pulmonic valvular regurgitation. There is no pulmonic valvular stenosis. GREAT VESSELS The aortic root is normal in size. The ascending aorta is normal in size. The pulmonary artery is nor mal. The IVC is normal in size and collapses >50% with inspiration. PERICARDIAL EFFUSION There is no evidence of significant pericardial effusion. Critical Notification Critical Value: No <Conclusion> The left ventricular systolic function is normal. The Ejection Fraction is 60-65%. There is normal LV segmental wall motion. Transmitral Doppler flow pattern is Grade I-abnormal relaxation pattern. There is no evidence of significant pericardial effusion.
--- NOTE | 2016-12-04 14:16 | RAD ---
APPROVED REPORT Test Type: Pharmacological Stress Nurse/Tech: Charline Zhu R.N. Test Indications: chest pain Cardiac History: No known cardiac Medications: See Electronic Medical Record Medical History: See Electronic Medical Record Resting ECG: NSR Resting Heart Rate: 81 bpm Resting Blood Pressure: 112/62mmHg Pretest Chest Pain: No chest pain Nurse/Tech Notes S1S2, lungs sound clear Consent: The procedure was explained to the patient in lay terms. Informed consent was witnessed. José Antonio eout was entered into [facility]. History and Stress Test performed by Charline Zhu R.N. Pharm. Details Pharmacologic stress testing was performed using 0.4mg per 5ml of regadenoson given intravenously ove r 7-10 seconds. Stress Symptoms No chest pain or symptoms. POST EXERCISE Reason for Termination: Infusion complete Max HR: 130 bpm Max Blood Pressure: 123/50mmHg Blood Pressure response to exercise: Normal blood pressure response during stress. Chest Pain: No. Arrhythmia: No. ST Change: No. INTERPRETATION Stress EKG Conclusion: The resting EKG shows a sinus rhythm with a septal Q wave and minimal nonspeci fic ST-T wave changes. The stress EKG shows no significant change from baseline. No EKG evidence of stress-induced ischemia. LV Perfusion The stress scans showed no significant defects. The rest scans showed no significant defects. Nuclear imaging shows no reversible ischemia or infarct. Wall Motion Normal left ventricular systolic function with an ejection fraction of greater than 70%. Conclusion 1. No EKG evidence of stress-induced ischemia. 2. Nuclear imaging shows no reversible ischemia or infarct. 3. Normal left ventricular systolic function with an ejection fraction of greater than 70%. 4. Low risk Lexiscan nuclear stress test.
[2016-12-04 14:53] VITALS: BP 132/86
--- NOTE | 2016-12-04 15:47 | PDOC ---
PROGRESS NOTES Chief Complaint Chief Complaint Chest pain - angina r.o, not ACS Hx of : L eye herpes zoster, recurrent Migraines Depression History of Present Illness History of Present Illness Pt seen and evaluated at bedside. No acute events overnight; patient resting comfortably without chest pain at this time. Discussed plan of care with patient , family at bedside, and with RN. Questions sought and answered. Vitals Vitals Vital Signs Date Time Temp Pulse Resp B/P Pulse Ox O2 Delivery O2 Flow Rate FiO2 12/04/16 14:53 98.1 84 19 132/86 99 Room Air 98.1 Physical Exam General: Alert, Oriented X3, Cooperative, No acute distress Heart: Regular rate, Other ( ) Lungs: Clear, Other (negative accessory muscle use ) Abdomen: Normal bowel sounds Extremities: No clubbing Skin: No rashes Labs LABS Laboratory Tests Test 12/04/16 05:05 Triglycerides Level 54mg/dL (0-150) Cholesterol Level 161mg/dL (0-200) LDL Cholesterol, Calculated 60mg/dL (0-100) VLDL Cholesterol, Calculated 11mg/dL (0-40) HDL Cholesterol 90mg/dL (40-60) Cholesterol/HDL Ratio 1.8 Assessment and Plan Assessmemt and Plan DC if cleared by CV team Problems Medical Problems: (1) Chest pain Status: Acute Problems: Comment Review of Relevant I have reviewed the following items celina (where applicable) has been applied. Labs Laboratory Tests Test 12/02/16 18:30 12/03/16 01:45 12/03/16 07:50 12/04/16 05:05 White Blood Count 8.1x10^3/uL (4.0-11.0) 5.0x10^3/uL (4.0-11.0) Red Blood Count 4.67x10^6/uL (3.50-5.40) 4.23x10^6/uL (3.50-5.40) Hemoglobin 14.6g/dL (12.0-15.5) 13.1g/dL (12.0-15.5) Hematocrit 42.1% (36.0-47.0) 39.3% (36.0-47.0) Mean Corpuscular Volume 90fL (79-100) 93fL (79-100) Mean Corpuscular Hemoglobin 31pg (25-35) 31pg (25-35) Mean Corpuscular Hemoglobin Concent 35g/dL (31-37) 33g/dL (31-37) Red Cell Distribution Width 12.1% (11.5-14.5) 12.2% (11.5-14.5) Platelet Count 434x10^3/uL (140-400) 355x10^3/uL (140-400) Neutrophils (%) (Auto) 56% (31-73) 53% (31-73) Lymphocytes (%) (Auto) 35% (24-48) 34% (24-48) Monocytes (%) (Auto) 7% (0-9) 8% (0-9) Eosinophils (%) (Auto) 2% (0-3) 5% (0-3) Basophils (%) (Auto) 1% (0-3) 1% (0-3) Neutrophils # (Auto) 4.5x10^3uL (1.8-7.7) 2.6x10^3uL (1.8-7.7) Lymphocytes # (Auto) 2.8x10^3/uL (1.0-4.8) 1.7x10^3/uL (1.0-4.8) Monocytes # (Auto) 0.6x10^3/uL (0.0-1.1) 0.4x10^3/uL (0.0-1.1) Eosinophils # (Auto) 0.2x10^3/uL (0.0-0.7) 0.2x10^3/uL (0.0-0.7) Basophils # (Auto) 0.1x10^3/uL (0.0-0.2) 0.1x10^3/uL (0.0-0.2) Sodium Level 139mmol/L (136-145) 141mmol/L (136-145) Potassium Level 3.3mmol/L (3.5-5.1) 3.7mmol/L (3.5-5.1) Chloride Level 102mmol/L (98-107) 107mmol/L (98-107) Carbon Dioxide Level 24mmol/L (21-32) 25mmol/L (21-32) Anion Gap 13 (6-14) 9 (6-14) Blood Urea Nitrogen 14mg/dL (7-20) 12mg/dL (7-20) Creatinine 0.9mg/dL (0.6-1.0) 0.8mg/dL (0.6-1.0) Estimated GFR (Cockcroft-Gault) 67.1 76.9 Glucose Level 98mg/dL (70-99) 105mg/dL (70-99) Calcium Level 9.2mg/dL (8.5-10.1) 8.6mg/dL (8.5-10.1) Total Bilirubin 0.5mg/dL (0.2-1.0) Direct Bilirubin 0.1mg/dL (0.0-0.2) Aspartate Amino Transf (AST/SGOT) 19U/L (15-37) Alanine Aminotransferase (ALT/SGPT) 21U/L (14-59) Alkaline Phosphatase 90U/L (46-116) Troponin I Quantitative < 0.017ng/mL (0.000-0.055) < 0.017ng/mL (0.000-0.055) < 0.017ng/mL (0.000-0.055) NK-Med-K-Type Natriuretic Peptide 40pg/mL (0-124) Total Protein 8.2g/dL (6.4-8.2) Albumin 4.2g/dL (3.4-5.0) Lipase 140U/L (73-393) Triglycerides Level 54mg/dL (0-150) Cholesterol Level 161mg/dL (0-200) LDL Cholesterol, Calculated 60mg/dL (0-100) VLDL Cholesterol, Calculated 11mg/dL (0-40) HDL Cholesterol 90mg/dL (40-60) Cholesterol/HDL Ratio 1.8 Laboratory Tests Test 12/04/16 05:05 Triglycerides Level 54mg/dL (0-150) Cholesterol Level 161mg/dL (0-200) LDL Cholesterol, Calculated 60mg/dL (0-100) VLDL Cholesterol, Calculated 11mg/dL (0-40) HDL Cholesterol 90mg/dL (40-60) Cholesterol/HDL Ratio 1.8 Medications Current Medications Aspirin (Children'S Aspirin) 324 mg 1X ONCE PO Last administered on 12/02/16t 18:59; Start 12/02/16 at 18:45; Stop 12/02/16 at 18:46; Status DC Nitroglycerin (Nitrostat) 0.4 mg PRN Q5MIN PRN SL CHEST PAIN; Start 12/02/16 at 19:45 Potassium Chloride (Klor-Con) 20 meq 1X ONCE PO Last administered on 12/02/16 20:33; Start 12/02/16 at 20:00; Stop 12/02/16 at 20:01; Status DC Ondansetron HCl (Zofran) 4 mg PRN Q8HRS PRN IV NAUSEA/VOMITING; Start 12/02/16 at 19:45; Stop 12/03/16 at 19:44; Status DC Morphine Sulfate 2 mg PRN Q2HR PRN IV PAIN; Start 12/02/16 at 19:45; Stop at 19:44; Status DC Calcium Carbonate/ Glycine (Tums) 500 mg PRN Q4HRS PRN PO INDIGESTION; Start at 23:00 Famotidine (Pepcid) 20 mg BID PO Last administered on 12/04/16 13:53; Start 12/02/16 at 23:00 Amitriptyline HCl (Elavil) 10 mg QHS PO Last administered on 12/03/16 20:38; Start 12/03/16 at 00:00 Acetaminophen/ Hydrocodone Bitart (Lortab 5/325) 1 tab PRN Q6HRS PRN PO MODERATE PAIN Last administered on 12/03/16 08:17; Start 12/02/16 at 23:00 Non-Formulary Medication 15 mg BID PO ; Start 12/03/16 at 09:00; Stop 12/04/16 at 12:16; Status DC Sertraline HCl (Zoloft) 100 mg DAILY PO Last administered on 12/04/16 13:54; Start 12/03/16 at 09:00 Acyclovir (Zovirax) 1,000 mg [id number] PO Last administered on 12/04/16 13:53; Start 12/02/16 at 23:30 Regadenoson (Lexiscan) 0.4 mg 1X ONCE IV Last administered on 12/04/16 11:08; Start 12/04/16 at 10:15; Stop 12/04/16 at 10:16; Status DC Active Scripts Active [place] 5-325 Tablet (Acetaminophen/Hydrocodone Bitart) 1 Each Tablet 1 Tab PO PRN Q6HRS PRN Reported Adderall Xr 15 Mg Capsule (Dextroamphetamine/Amphetamine) 15 Mg Cap.er.24h 15 Mg PO BID Zoloft (Sertraline Hcl) 100 Mg Tablet 1 Tab PO DAILY Amitriptyline Hcl 10 Mg Tablet 1 Tab PO QHS Vitals/I & O Vital Sign - Last 24 Hours 12/03/16 12/03/16 12/03/16 12/04/16 19:05 19:33 23:27 03:30 Temp 98.3 97.8 98.3 97.8 Pulse 75 76 71 Resp 20 18 B/P 126/79 123/79 Pulse Ox 98 98 O2 Delivery Room Air Room Air Room Air 12/04/16 12/04/16 12/04/16 07:00 08:00 14:53 Temp 97.9 98.1 97.9 98.1 Pulse 76 84 Resp 19 19 B/P 126/84 132/86 Pulse Ox 98 99 O2 Delivery Room Air Room Air Room Air Intake and Output 12/03/16 12/03/16 12/04/16 15:00 23:00 07:00 Intake Total 1500 ml 480 ml Balance 1500 ml 480 ml TIM BARCLAY MD Dec 04, 2016 15:46
--- NOTE | 2016-12-04 15:50 | PDOC3 ---
Discharge Summary Visit Information Date of Admission: Dec 02, 2016 Date of Discharge: Dec 04, 2016 Admitting Diagnosis: angina Final Diagnosis Chest pain, if angina then stable MPI without evidence of ischemia cardiac Murmur 3. Left eye shingles continue present treatment per PCPProblems Medical Problems: (1) Chest pain Status: Acute Brief Hospital Course Allergies Allergies Coded Allergies Type Severity Reaction Last Updated Verified Iodinated Contrast Media - Oral and Allergy Intermediate Rash 10/22/14 No Penicillins Allergy Intermediate Rash 10/22/14 Yes Sulfa (Sulfonamide Antibiotics) Allergy Intermediate Rash 10/22/14 Yes Vital Signs Vital Signs Date Time Temp Pulse Resp B/P Pulse Ox O2 Delivery O2 Flow Rate FiO2 12/04/16 14:53 98.1 84 19 132/86 99 Room Air 98.1 Lab Results Laboratory Tests Test 12/02/16 18:30 12/03/16 01:45 12/03/16 07:50 12/04/16 05:05 White Blood Count 8.1x10^3/uL (4.0-11.0) 5.0x10^3/uL (4.0-11.0) Red Blood Count 4.67x10^6/uL (3.50-5.40) 4.23x10^6/uL (3.50-5.40) Hemoglobin 14.6g/dL (12.0-15.5) 13.1g/dL (12.0-15.5) Hematocrit 42.1% (36.0-47.0) 39.3% (36.0-47.0) Mean Corpuscular Volume 90fL (79-100) 93fL (79-100) Mean Corpuscular Hemoglobin 31pg (25-35) 31pg (25-35) Mean Corpuscular Hemoglobin Concent 35g/dL (31-37) 33g/dL (31-37) Red Cell Distribution Width 12.1% (11.5-14.5) 12.2% (11.5-14.5) Platelet Count 434x10^3/uL (140-400) 355x10^3/uL (140-400) Neutrophils (%) (Auto) 56% (31-73) 53% (31-73) Lymphocytes (%) (Auto) 35% (24-48) 34% (24-48) Monocytes (%) (Auto) 7% (0-9) 8% (0-9) Eosinophils (%) (Auto) 2% (0-3) 5% (0-3) Basophils (%) (Auto) 1% (0-3) 1% (0-3) Neutrophils # (Auto) 4.5x10^3uL (1.8-7.7) 2.6x10^3uL (1.8-7.7) Lymphocytes # (Auto) 2.8x10^3/uL (1.0-4.8) 1.7x10^3/uL (1.0-4.8) Monocytes # (Auto) 0.6x10^3/uL (0.0-1.1) 0.4x10^3/uL (0.0-1.1) Eosinophils # (Auto) 0.2x10^3/uL (0.0-0.7) 0.2x10^3/uL (0.0-0.7) Basophils # (Auto) 0.1x10^3/uL (0.0-0.2) 0.1x10^3/uL (0.0-0.2) Sodium Level 139mmol/L (136-145) 141mmol/L (136-145) Potassium Level 3.3mmol/L (3.5-5.1) 3.7mmol/L (3.5-5.1) Chloride Level 102mmol/L (98-107) 107mmol/L (98-107) Carbon Dioxide Level 24mmol/L (21-32) 25mmol/L (21-32) Anion Gap 13 (6-14) 9 (6-14) Blood Urea Nitrogen 14mg/dL (7-20) 12mg/dL (7-20) Creatinine 0.9mg/dL (0.6-1.0) 0.8mg/dL (0.6-1.0) Estimated GFR (Cockcroft-Gault) 67.1 76.9 Glucose Level 98mg/dL (70-99) 105mg/dL (70-99) Calcium Level 9.2mg/dL (8.5-10.1) 8.6mg/dL (8.5-10.1) Total Bilirubin 0.5mg/dL (0.2-1.0) Direct Bilirubin 0.1mg/dL (0.0-0.2) Aspartate Amino Transf (AST/SGOT) 19U/L (15-37) Alanine Aminotransferase (ALT/SGPT) 21U/L (14-59) Alkaline Phosphatase 90U/L (46-116) Troponin I Quantitative < 0.017ng/mL (0.000-0.055) < 0.017ng/mL (0.000-0.055) < 0.017ng/mL (0.000-0.055) BQ-Qve-Q-Type Natriuretic Peptide 40pg/mL (0-124) Total Protein 8.2g/dL (6.4-8.2) Albumin 4.2g/dL (3.4-5.0) Lipase 140U/L (73-393) Triglycerides Level 54mg/dL (0-150) Cholesterol Level 161mg/dL (0-200) LDL Cholesterol, Calculated 60mg/dL (0-100) VLDL Cholesterol, Calculated 11mg/dL (0-40) HDL Cholesterol 90mg/dL (40-60) Cholesterol/HDL Ratio 1.8 Laboratory Tests Test 12/04/16 05:05 Triglycerides Level 54mg/dL (0-150) Cholesterol Level 161mg/dL (0-200) LDL Cholesterol, Calculated 60mg/dL (0-100) VLDL Cholesterol, Calculated 11mg/dL (0-40) HDL Cholesterol 90mg/dL (40-60) Cholesterol/HDL Ratio 1.8 Brief Hospital Course Ms. Johnson is a 46 old admit with chest pain and murmur, EKG with St depression, subclinical MPI stress OK , no ischemi echo with preserved LV function nor significant valvular abnormalities f/u primary care Discharge Information Condition at Discharge: Improved Follow Up: Weeks Disposition/Orders: D/C to Home Scheduled Amitriptyline Hcl (Amitriptyline Hcl) 1 TAB PO QHS (Reported) Dextroamphetamine/Amphetamine (Adderall Xr 15 Mg Capsule) 15 MG PO BID (Reported ) Sertraline Hcl (Zoloft) 1 TAB PO DAILY (Reported) Scheduled PRN Hydrocodone/Apap 5-325 (Acme 5-325 Tablet) 1 TAB PO PRN Q6HRS PRN PRN PAIN Discontinued Medications Aspirin/Acetaminophen/Caffeine (Excedrin Migraine Caplet) 1 EACH PO (Reported) Dextroamphetamine/Amphetamine (Adderall Xr 10 Mg Capsule) 1 CAP PO BID (Reported ) Propranolol Hcl (Propranolol Hcl) Unknown Dose PO DAILY (Reported) Sertraline Hcl (Zoloft) 1.5 TAB PO DAILY (Reported) Sumatriptan Succinate (Imitrex) Unknown Dose PO ONCE PRN PRN MIGRAINE HEADACHE ( Reported) Patient Instructions Patient Instructions time under 30 min cont PO acyclovir, stable problem TIM BARCLAY MD Dec 04, 2016 15:50
== END 2016-12-04 17:48 | disposition home or self-care (01) ==
LOC: ER 18:21 → 5 NORTH 20:19
PROVIDERS: ADMIT Internal Medicine Hematology & Oncology; ATTEND Internal Medicine Hematology & Oncology
DX: R07.89 Other chest pain (principal); F32.9 Major depressive disorder, single episode, unspecified; B02.30 Zoster ocular disease, unspecified; G43.909 Migraine, unspecified, not intractable, without status migrainosus; R01.1 Cardiac murmur, unspecified; F98.8 Other specified behavioral and emotional disorders with onset usually occurring in childhood and adolescence; Z90.49 Acquired absence of other specified parts of digestive tract; Z82.49 Family history of ischemic heart disease and other diseases of the circulatory system
CPT/HCPCS: 36415; 71010; 78452; 80048; 80061; 80076; 83690; 83880; 84484; 85027; 93005; 93017; 93306; 99285; A9500; G0378; J2785; 96374; 96375; 96376; G0379

== ENCOUNTER → 2017-11-12 | Outpatient (CLI) | payer OTHER | END | disposition home or self-care (01) | LOC: KCIC CT 10:07 | DX: J01.81 Other acute recurrent sinusitis (principal) | CPT/HCPCS: 70486 ==

== ENCOUNTER → 2020-05-21 | Outpatient (CLI) | payer OTHER ==
[~2020-05-21] MED LIST changes: +ACYC200C PO; +AMIT10TA PO; -ASPI1TAB30 PO; +ASPI1TAB31 PO; +DEXT15CA18 PO; +HYDR-3164 PO; -HYDR-971 PO
--- NOTE | 2020-05-21 14:45 | KCIC ---
EXAM: Bilateral digital screening mammogram with tomosynthesis. HISTORY: 50-year-old female presents for screening mammography. TECHNIQUE: Full-field digital craniocaudal and mediolateral oblique 2D and 3D tomosynthesis images of both breasts are obtained for evaluation. Computer aided detection with [employer] software version 9.3 was applied. COMPARISON: 05/15/2016 BREAST PARENCHYMAL DENSITY: Level D - Extremely dense. FINDINGS: There is no new suspicious mass, microcalcification or region of architectural distortion. IMPRESSION: BI-RADS Category 2: Benign finding(s). RECOMMENDATION: Annual mammography is recommended. If your mammogram demonstrates that you have dense breast tissue, which could hide abnormalities, and if you have other risk factors for breast cancer that have been identified, you might benefit from supplemental screening tests that may be suggested by your ordering physician. Dense breast tissue, in and of itself, is a relatively common condition. This information is not provided to cause undue concern, but rather to raise your awareness and to promote discussion with your physician regarding the presence of other risk factors, in addition to dense breast tissue. A report of your mammography results will be sent to you and your physician. You should contact your physician if you have any questions or concerns regarding this report. Mammography is a sensitive method for finding small breast cancers, but it does not detect them all and is not a substitute for careful clinical examination. A negative mammogram does not negate a clinically suspicious finding and should not result in delay in biopsying a clinically suspicious abnormality. PQRS compliance statement - Patient information was entered into a reminder system with a target due date for the next mammogram. "Our facility is accredited by the [employer] Mammography Program." Electronically signed by: Paris Davey MD (05/21/2020 2:42 PM) [facility]
== END | disposition home or self-care (01) ==
LOC: EDBD 13:10 → KCIC MAMMO 13:10
PROVIDERS: ATTEND Family Medicine
DX: Z12.31 Encounter for screening mammogram for malignant neoplasm of breast (principal)
CPT/HCPCS: 77063; 77067